=== PATIENT | male | born 2000 | race Caucasian/White ===

== ENCOUNTER 2022-05-28 03:05 | Emergency (ER) | payer BC ==
[~2022-05-28] VITALS: Ht 175.3 cm; Wt 74.8 kg
[2022-05-28] MEDS ORDERED: MIDAZOLAM 2 MG/2 ML (VERSED) VIAL IVP ONE (03:45)
[2022-05-28] MEDS ORDERED: fentaNYL INJ 100 MCG/2 ML AMP IVP ONE (03:45)
[2022-05-28] MEDS ORDERED: LACTATED RINGERS 1,000 ML IV ONE (03:45)
[2022-05-28] MEDS ORDERED: ACHD5005 PO ×2 (04:30→05:58)
[2022-05-28] MEDS ORDERED: KETO10TA PO ×2 (04:30→05:58)
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
[2022-05-28] MEDS ORDERED: FLUMAZENIL (ROMAZICON) 0.1 MG/ML 10 ML VIAL IV ONE ×2 (05:00→05:15)
[2022-05-28 05:46] VITALS: BP 141/95
--- NOTE | 2022-05-28 07:56 | Diagnostic Imaging Report ---
INDICATION: Pain. FINDINGS: The alignment is normal. There is no fracture or dislocation. Left lung is clear. The soft tissues are unremarkable. IMPRESSION: No acute fracture or dislocation. Dictated by: Dictated on workstation # [id number]
--- NOTE | 2022-05-28 08:08 | Diagnostic Imaging Report ---
INDICATION: Pain. TECHNIQUE: Two views were obtained. FINDINGS: The alignment is normal. There is no fracture or dislocation. The left lung is clear. The soft tissues are unremarkable. IMPRESSION: No acute abnormality in the left shoulder. Dictated by: Dictated on workstation # [id number]
== END 2022-05-28 05:47 | disposition home or self-care (01) ==
LOC: EDUNIT# 03:05 → ER 03:08
DX: S43.035A Inferior dislocation of left humerus, initial encounter (principal); Z28.310 Unvaccinated for COVID-19; Y04.8XXA Assault by other bodily force, initial encounter; W18.30XA Fall on same level, unspecified, initial encounter
CPT/HCPCS: 23650; 73020; 73030; 93041; 99291; 99292